=== PATIENT | male | born 1940 | race African-American/Black ===

== ENCOUNTER 2017-02-01 11:29 | Emergency (ER) | payer OTHER ==
[~2017-02-01] VITALS: Ht 175.3 cm; Wt 69.0 kg
[~2017-02-01 11:29] MED LIST: ADULT LOW DOSE81 MG PO; CENTRUM SILVER1 EAC1 PO; COLACE100 MG PO; FINASTERIDE5 MG PO; FLOVENT HFA13 GM; GAVISCON EXTRA355 ML; HYTRIN 5 M5 MG/1 CAP PO; HYTRIN10 MG PO; IRON PO; IRON18 M1; LORTAB 5 MG/5001 TA1 PO; METAMUCIL1 EAC1; NEURONTIN 300300 M1 PO; NEXIUM40 MG PO; NORCO 5-325 TA1 EACH PO; OMEPRAZOLE40 MG PO; SYNALAR120 GM TP; TARKA PO; TRAMADOL 50 MG50 MG PO; TRAVATAN 0.004%5 ML; TRAVATAN Z5 ML OPHTHALMIC; TRICOR145 MG PO; TUMS200 MG; ZOFRAN ODT4 MG PO
[2017-02-01 12:21] LABS: ABSOLUTE NEUTROPHILS 2.5 thou/uL (1.4-8.2); BASOPHILS 0.7 % (0.0-2.0); HEMOGLOBIN 11.4 gm/dL (14.0-18.0); LYMPHOCYTES 28.6 % (24.0-44.0); MCH 29.8 pg (26.0-34.0); MCHC 32.6 g/dL (28.0-37.0); MCV 91.5 fL (80.0-100.0); MONOCYTES 9.8 % (1.0-8.0); PLATELET COUNT 139 thou/uL (150-400); POLYS 57.9 % (36.0-66.0); RBC 3.83 mil/uL (4.50-6.00); RDW 13.1 % (10.5-14.5); WBC 4.3 thou/uL (4.0-11.0)
[2017-02-01 12:23] LABS: MANUAL DIFF NO
[2017-02-01 12:33] LABS: CALCIUM 9.5 mg/dL (8.5-10.1); CREATININE 1.7 mg/dL (0.6-1.3); POTASSIUM 3.8 mmol/L (3.5-5.1)
[2017-02-01] MEDS ORDERED: ULTRAM 50MG TAB50 MG PO (13:37)
== END 2017-02-01 13:48 | disposition home or self-care (01) ==
LOC: ER 11:29
PROVIDERS: Nurse Practitioner
DX: R51 Headache (principal); Z85.528 Personal history of other malignant neoplasm of kidney; Z98.890 Other specified postprocedural states